=== PATIENT | male | born 1960 | race Hispanic/Latino ===

== ENCOUNTER 2018-09-11 18:20 | Emergency (ER) | payer OTHER ==
[2018-09-11 18:26] VITALS: TEMP 98; O2SAT 100
[2018-09-11 18:46] LABS: BASO # 0.1 K/uL (0.0-0.2); BASO % 1.1 % (0.0-2.0); EOS # 0.2 K/uL (0.0-0.7); EOS % 1.6 % (0.0-4.0); HEMOGLOBIN 15.3 g/dL (12.0-18.0); LYMPH # 2.9 K/uL (1.0-4.3); LYMPH % 29.3 % (20.0-40.0); MEAN CORPUSCULAR HEMOGLOBIN 27.5 pg (27.0-31.0); MEAN CORPUSCULAR HGB CONC 33.1 g/dL (33.0-37.0); MEAN PLATELET VOLUME 8.6 fl (7.2-11.7); MONO # 0.8 K/uL (0.0-0.8); MONO % 8.1 % (0.0-10.0); NEUT % 59.9 % (50.0-75.0); NRBC % 0.1 % (0.0-0.0); RBC 5.58 Mil/uL (4.40-5.90); RED CELL DISTRIBUTION WIDTH 15.1 % (11.5-14.5); WHITE BLOOD COUNT 10.1 K/uL (4.8-10.8)
[2018-09-11 18:46] LABS: VENOUS BLOOD GAS BASE EXCESS -1.1 mmol/L (0.0-2.0); VENOUS BLOOD GAS PCO2 34 mmHg (40-60); VENOUS BLOOD GAS PO2 39 mm/Hg (30-55); VENOUS BLOOD PH 7.43 (7.32-7.43)
[2018-09-11] MEDS ORDERED: Iodixanol 320 MG/ML 100 ML BOTTLE IV ONE (18:46)
[2018-09-11] MEDS ORDERED: Sodium Chloride 0.9% 50 ML IV ONE (18:47)
[2018-09-11 18:51] LABS: INR 1.2; PROTHROMBIN TIME 13.1 Seconds (9.8-13.1)
[2018-09-11] MEDS ORDERED: Heparin 25,000units in D5W 25,000 UNITS/250 ML BAG IV ONE (18:53)
--- NOTE | 2018-09-11 18:53 | RAD ---
Date of service: 09/11/2018 HISTORY: possible admission COMPARISON: No prior. FINDINGS: LUNGS: No active pulmonary disease. PLEURA: No significant pleural effusion identified, no pneumothorax apparent. CARDIOVASCULAR: No atherosclerotic calcification present No radiographic findings to suggest acute or significant cardiovascular disease. OSSEOUS STRUCTURES: No significant abnormalities. VISUALIZED UPPER ABDOMEN: Normal. OTHER FINDINGS: None. IMPRESSION: No active disease.
--- NOTE | 2018-09-11 18:57 | ED PDOC ---
HPI: Chest Pain Time Seen by Provider: 09/11/18 18:27 Chief Complaint (Nursing): Chest Pain Chief Complaint (Provider): Chest Pain History Per: Patient History/Exam Limitations: no limitations Onset/Duration Of Symptoms: Unknown Additional Complaint(s): 58 years old male with history of hypertension presents to ER for evaluation of chest pain of unknown onset. Patient reports it was initially neck pain radiating to his chest. PMD: non provided Past Medical History Reviewed: Historical Data, Nursing Documentation, Vital Signs Vital Signs: Last Vital Signs Temp 98.0 F 09/11/18 18:24 Pulse 58 L 09/11/18 18:24 Resp 16 09/11/18 18:24 BP 177/95 H 09/11/18 18:24 Pulse Ox 100 09/11/18 18:24 - Medical History PMH: Asthma, HTN - Surgical History Surgical History: No Surg Hx - Family History Family History: States: Unknown Family Hx - Social History Current smoker - smoking cessation education provided: No Alcohol: Social Drugs: Denies - Home Medications Home Medications: Ambulatory Orders Medication Instructions Recorded RX: Aspirin [Aspirin Chewable] 81 mg PO DAILY #30 chew 09/13/18 RX: Fluticasone/Vilanterol 200/25 1 puff INH RQD #1 inh 09/13/18 [Breo Ellipta 200-25 Mcg INH] RX: Losartan [Cozaar] 25 mg PO DAILY #30 tab 09/13/18 RX: Pantoprazole [Protonix EC Tab] 40 mg PO DAILY #30 ect 09/13/18 RX: Rosuvastatin Calcium [Crestor] 40 mg PO QPM #30 tab 09/13/18 RX: Ticagrelor [Brilinta] 90 mg PO BID #60 tab 09/13/18 Rosuvastatin Calcium [Crestor] 40 mg PO QPM #30 tab 09/13/18 - Allergies Allergies/Adverse Reactions: Allergies Allergy/AdvReac Type Severity Reaction Status Date / Time Penicillins Allergy RASH Verified 09/11/18 18:23 metoprolol AdvReac cardiac Verified 09/11/18 18:23 arrest Review of Systems ROS Statement: Except As Marked, All Systems Reviewed And Found Negative Cardiovascular: Positive for: Chest Pain Musculoskeletal: Positive for: Neck Pain Physical Exam - Reviewed Nursing Documentation Reviewed: Yes Vital Signs Reviewed: Yes - Physical Exam Appears: Positive for: Non-toxic (Obese) Cardiovascular/Chest: Positive for: Regular Rate, Rhythm. Negative for: Murmur Respiratory: Positive for: Normal Breath Sounds. Negative for: Wheezing Gastrointestinal/Abdominal: Positive for: Normal Exam, Soft. Negative for: Tenderness Extremity: Positive for: Normal ROM. Negative for: Pedal Edema, Deformity Neurologic/Psych: Positive for: Alert, Oriented (x3) - Laboratory Results Result Diagrams: 09/11/18 18:30 09/11/18 18:30 - ECG O2 Sat by Pulse Oximetry: 100 (RA) Pulse Ox Interpretation: Normal - Critical Care Total Time (In Min): 60 Medical Decision Making Medical Decision Making: Time: 1826 --Dr. Castellon was contacted at 1830 on patient's arrival and images were faxed to him --Dr. Castellno returned the call and suggests activation due to inferior lead elevation and call Dr. Thompson, who is covering for him. 1844 CXR FINDINGS: LUNGS: No active pulmonary disease. PLEURA: No significant pleural effusion identified, no pneumothorax apparent. CARDIOVASCULAR: No atherosclerotic calcification present No radiographic findings to suggest acute or significant cardiovascular disease. OSSEOUS STRUCTURES: No significant abnormalities. VISUALIZED UPPER ABDOMEN: Normal. OTHER FINDINGS: None. IMPRESSION: No active disease. [address] Thompson who is covering for Dr. Castellon. He recommends giving 5000 IV drip Heparin 1,000 unit/hour Patient will be sent to cathode builder at [facility] 1904 Spoke to patient's son and informed him of transferring patient to [facility] [place]. 1914 Patient picked up by EMS Patient at this point telling EMS that he had chest pain all day and that he had a pervious catheterization Patient with stable vitals on monitor when leaving the ED ----- Scribe Attestation: Documented by Melany Hale, acting as a scribe for Ingrid Ortiz MD. Provider Scribe Attestation: All medical record entries made by the Scribe were at my direction and personally dictated by me. I have reviewed the chart and agree that the record accurately reflects my personal performance of the history, physical exam, medical decision making, and the department course for this patient. I have also personally directed, reviewed, and agree with the discharge instructions and disposition. Disposition - Clinical Impression Clinical Impression: Chest pain, Myocardial infarction - Disposition Disposition: Other Institution Disposition Time: 18:00 Condition: CRITICAL Forms: [employer] ([place])
[2018-09-11] MEDS ORDERED: Heparin 25,000units in D5W 25,000 UNITS/250 ML BAG IV SCH (19:00)
[2018-09-11] MEDS ORDERED: Morphine 4 MG/ML VIAL IVP STA (19:03)
[2018-09-11 19:07] LABS: ALB/GLOB RATIO 1.3 (1.0-2.1); ALBUMIN 4.2 g/dL (3.5-5.0); BLOOD UREA NITROGEN 18 mg/dl (9-20); CALCIUM 8.6 mg/dL (8.4-10.2); GFR NON-AFRICAN AMERICAN > 60; LIPASE 28 U/L (23-300)
[2018-09-11 19:08] LABS: ALT/SGPT 70 U/L (21-72); AST/SGOT 64 U/L (17-59)
[2018-09-11 19:17] LABS: B-TYPE NATRIURETIC PEPTIDE 219 pg/ml (0-900)
[2018-09-11 19:51] VITALS: RESP 16
[2018-09-11 20:01] VITALS: BP 152/101; PULSE 113
--- NOTE | 2018-09-12 20:10 | CARD ---
APPROVED REPORT Date of service: 09/11/2018 EKG Measurement Heart [id number] <Conclusion> Junctional rhythm ST elevation, consider inferior injury or acute infarct ACUTE NV / STEMI Consider right ventricular involvement in acute inferior infarct Abnormal ECG
--- NOTE | 2018-09-16 13:59 | CARD ---
APPROVED REPORT Date of service: 09/11/2018 EKG Measurement Heart [id number] <Conclusion> Junctional rhythm Left ventricular hypertrophy with repolarization abnormality ST elevation, consider inferior injury or acute infarct ACUTE CO / STEMI Consider right ventricular involvement in acute inferior infarct Abnormal ECG
--- NOTE | 2018-09-16 13:59 | CARD ---
APPROVED REPORT Date of service: 09/11/2018 EKG Measurement Heart [id number] <Conclusion> Junctional rhythm with premature atrial rhythm ST elevation, consider inferior injury or acute infarct ACUTE ND / STEMI Consider right ventricular involvement in acute inferior infarct Abnormal ECG
--- NOTE | 2018-09-16 14:02 | CARD ---
APPROVED REPORT Date of service: 09/11/2018 EKG Measurement Heart [id number] <Conclusion> Junctional rhythm ST elevation, consider inferior injury or acute infarct ACUTE [place] / STEMI Consider right ventricular involvement in acute inferior infarct Abnormal ECG
== END 2018-09-11 19:27 | disposition short-term general hospital (02) ==
LOC: H.ER 18:20
DX: R07.9 Chest pain, unspecified (principal); I21.9 Acute myocardial infarction, unspecified; I10 Essential (primary) hypertension; J45.909 Unspecified asthma, uncomplicated; Z88.0 Allergy status to penicillin; Z79.899 Other long term (current) drug therapy
CPT/HCPCS: 71045; 80053; 82803; 82948; 83690; 83880; 84484; 85025; 85378; 85610; 85730; 86850; 86900; 87804; 93005; 96374; 96375; 99285; J1644; J2270; J2405